=== PATIENT | female | born 2000 | race Caucasian/White ===

== ENCOUNTER → 2024-12-24 | Outpatient (CLI) | payer BC ==
--- NOTE | 2024-12-25 09:17 | MR ---
CLINICAL INDICATION: Benign neoplasm of the pituitary gland. COMPARISON: None. TECHNIQUE: Multi planar, multi sequence imaging was performed through the brain. Specialized thin s equences were obtained through the pituitary gland/sella turcica. Pre-and post gadolinium sequences were obtained as well after administration of 11 cc of Gadavist. FINDINGS: The morphology of the pituitary gland is within normal limits. The pituitary stalk is not deviated. After administration of gadolinium, homogeneous pituitary enhancement is seen. The intracranial brock rial flow voids are intact. No other abnormality identified within the visualized portions of the br ain. Moderate mucosal thickening of the right sphenoid sinus. IMPRESSION: 1. No pituitary gland abnormality. No convincing MRI evidence for pituitary micro or macroadenoma. If the patient has abnormal labs and/or symptoms possibly related to pituitary neoplasm I would conside r repeat MRI in 6-12 months time to reassess. 2. Moderate right sphenoid sinus mucosal disease. [facility], , 12/25/2024 9:14 AM
== END | disposition home or self-care (01) ==
LOC: RADMRIMAIN 20:45
PROVIDERS: ATTEND Internal Medicine Endocrinology, Diabetes & Metabolism
DX: D35.2 Benign neoplasm of pituitary gland (principal); J34.89 Other specified disorders of nose and nasal sinuses
CPT/HCPCS: 70553; A9585